=== PATIENT | male | born 1995 | race Caucasian/White ===

== ENCOUNTER 2017-08-18 22:31 | Emergency (ER) | payer OTHER ==
[~2017-08-18 22:31] MED LIST: ACET500 PO; ALBU90OI INH; AMOX875 PO; AZIT500 PO; BENZ100A PO; CEPH500 PO; CODACE30 PO; CRUTCH3 USE; Cleocin HCl300 MG PO; Crutch1 EACH MISC; DOXY100 PO; HYDACE5 PO; IBUP600 PO; IBUP800 PO; NAPR500 PO; OMEP20ER PO; OMEP40CA12 PO; PROM25 PO; Prednisone20 MG PO; RXCODACET PO; RXOXYACE PO; RXPROCODSY PO; SPACE CHAMBER1 EACH MC; SULTRIDS PO; Ultram50 MG PO; Vibramycin100 MG PO; Zofran Odt4 MG PO; [UNRECOGNIZED DRUG - OTHER]
== END 2017-08-18 23:28 | disposition left against medical advice (07) ==
LOC: ER 22:31
DX: Z53.21 Procedure and treatment not carried out due to patient leaving prior to being seen by health care provider (principal)

== ENCOUNTER 2018-03-26 18:21 | Emergency (ER) | payer OTHER ==
[~2018-03-26] VITALS: Ht 172.7 cm; Wt 231.3 kg
== END 2018-03-26 18:45 | disposition home or self-care (01) ==
LOC: ER 18:21
DX: Z00.00 Encounter for general adult medical examination without abnormal findings (principal); Z87.891 Personal history of nicotine dependence
CPT/HCPCS: 99283

== ENCOUNTER → 2018-08-17 | Outpatient (CLI) | payer SELFPAY | END | disposition home or self-care (01) | LOC: LAB EV 16:40 → LAB SHORT 16:40 | DX: L03.119 Cellulitis of unspecified part of limb (principal) | CPT/HCPCS: 87070; 87075; 87077; 87147; 87186; 87205 ==

== ENCOUNTER 2020-01-29 22:27 | Emergency (ER) | payer SELFPAY ==
[~2020-01-29] VITALS: Ht 172.7 cm; Wt 83.9 kg
[2020-01-30] MEDS ORDERED: Vibramycin100 MG PO (00:56)
== END 2020-01-30 01:26 | disposition home or self-care (01) ==
LOC: ER 22:27
DX: N45.1 Epididymitis (principal); F17.210 Nicotine dependence, cigarettes, uncomplicated
CPT/HCPCS: 76870; 96372; 99284-25; J0696